=== PATIENT | male | born 1985 | race African-American/Black ===

== ENCOUNTER 2025-09-26 11:26 | Inpatient (IN) | payer OTHER ==
[2025-09-26 12:02] VITALS: BMI 24.7
[2025-09-26] MEDS ORDERED: ACETAMINOPHEN 325 MG TABLET (FP) PO PRN (12:09)
[2025-09-26] MEDS ORDERED: MAG HYDROX/AL HYDROX/SIMETH 30 ML UNIT-DOSE CUP PO PRN (12:09)
[2025-09-26] MEDS ORDERED: BENZONATATE 200 MG CAPSULE PO PRN (12:09)
[2025-09-26] MEDS ORDERED: guaiFENesin 600 MG TABLET.ER (FP) PO PRN (12:09)
[2025-09-26] MEDS ORDERED: LOPERAMIDE HCL 2 MG CAPSULE PO PRN (12:09)
[2025-09-26] MEDS ORDERED: BISMUTH SUBSALICYLATE 524 MG/30 ML PO PRN (12:09)
[2025-09-26] MEDS ORDERED: IBUPROFEN 400 MG TABLET (FP) PO PRN (12:09)
[2025-09-26] MEDS ORDERED: DICYCLOMINE HCL 10 MG CAPSULE PO PRN (12:09)
[2025-09-26] MEDS ORDERED: MAGNESIUM HYDROX 2400MG/30ML ORAL SUSPENSION 30 ML CUP PO PRN (12:09)
[2025-09-26] MEDS ORDERED: POLYETHYLENE GLYCOL (HEALTHYLAX) 3350 17 GM PACKET PO PRN (12:09)
[2025-09-26] MEDS ORDERED: NALOXONE (NARCAN) HCL 4 MG/0.1 ML SPRAY NS PRN (12:09)
[2025-09-26] MEDS: ONDANSETRON *ODT* 4 MG TABLET SL PRN (12:35)
[2025-09-26] MEDS: PRENATAL VITAMINS W/ FOLIC ACID TABLET (FP) PO SCH (12:36)
[2025-09-26] MEDS: NALTREXONE HCL 50 MG TABLET PO ONE (13:25)
[2025-09-26] MEDS: METHOCARBAMOL 500 MG TABLET PO PRN (22:06)
[2025-09-26] MEDS: MELATONIN 5 MG TABLETS PO SCH (22:06)
[2025-09-26] MEDS: THIAMINE 100 MG TABLET PO SCH (22:06)
[2025-09-26] MEDS: hydrOXYzine PAMOATE 25 MG CAPSULE (FP) PO PRN (22:06)
[2025-09-27] MEDS: NALTREXONE HCL 50 MG TABLET PO SCH (10:06)
[2025-09-27 12:49] LABS: MCHC 33.1 g/dl (32.3-36.5); MEAN CELL VOLUME 83.5 fl (79.0-92.2); MEAN PLT VOLUME 11.5 fl (9.4-12.4); RDW 14.2 % (12.0-15.6)
[2025-09-27 13:23] LABS: GLUCOSE,RANDOM 117.0 mg/dL (74-106); TOT PROT 6.9 g/dl (6.4-8.2)
[2025-09-27 13:24] LABS: CO2 26.0 mmol/L (21-32)
[2025-09-27 13:26] LABS: ALK PHOS 80.0 U/L (40-150)
[2025-09-27 13:28] LABS: CREATININE 0.9 mg/dL (0.55-1.3); SGOT/AST 30.0 U/L (5-34); SGPT/ALT 23.0 U/L (0-55)
[2025-09-27] MEDS: QUEtiapine FUMARATE 100 MG TABLET (FP) PO SCH (22:05)
[2025-09-27] MEDS: BENZOCAINE/MENTHOL (CHLORASEPTIC ) LOZENGE MM PRN (23:30)
[2025-09-27] MEDS: P-EPHED 60MG/TRIPROLIDI 2.5MG TABLET PO PRN (23:35)
[2025-09-28] MEDS: IBUPROFEN 600 MG TABLET (FP) PO PRN (10:02)
[2025-09-28] MEDS: NICOTINE POLACRILEX 4 MG GUM BUC PRN (13:03)
[2025-09-30 06:18] VITALS: BP 111/63; PULSE 86; RESP 18; TEMP 98.6
== END 2025-09-30 08:48 | disposition home or self-care (01) | DRG 775 ==
LOC: YASAS 11:26 → Y3N 13:08
PROVIDERS: ADMIT Allergy & Immunology; ATTEND Counselor Addiction (Substance Use Disorder)
PROC: HZ2ZZZZ Detoxification Services for Substance Abuse Treatment (ICD-10-PCS; principal; 2025-09-26)
DX: F10.230 Alcohol dependence with withdrawal, uncomplicated (principal); F13.20 Sedative, hypnotic or anxiolytic dependence, uncomplicated; F16.20 Hallucinogen dependence, uncomplicated; F17.210 Nicotine dependence, cigarettes, uncomplicated; F31.9 Bipolar disorder, unspecified; F19.24 Other psychoactive substance dependence with psychoactive substance-induced mood disorder; G47.00 Insomnia, unspecified
CPT/HCPCS: 36415; 80053; 80307; 85027; 86780; 93005; 93010; Q0162